=== PATIENT | female | born 1995 | race Caucasian/White ===

== ENCOUNTER 2019-03-13 14:54 | Outpatient (REF) | payer OTHER, SELFPAY ==
--- NOTE | 2019-03-13 14:30 | PAPFT_PTH ---
PATIENT: Gregory Barboza LOC: [facility] U#:[id number] AGE/SX: 24/F ROOM: RE03/13/[address]: GABBI Hendrickson : 1995 BED: DIS: 03/13/2019 SPEC #: [id number] RECD: 03/13/19 18:10 STATUS: OMAR GAMA #: [id number] DERIK: 03/13/19 14:[address]: Elaine Talavera DEPT: [facility] Cytology RECD BY: Xiomara Sandoval ENTERED: 03/13/19 18:10 SP TYPE: PAPFT CRISTI DR: Christina Tissues: 1 - CX/ENDOCX FOR PAP SMEARS Procedures: PAP THIN PREP/[facility] Screening Comments: [id number]
[2019-03-15 15:03] LABS: Chlamydia Result Negative; GC Result Negative; Specimen Description CERVIX
== END 2019-03-13 15:14 ==
LOC: LBN 14:54
PROVIDERS: Visit Provider Nurse Practitioner Family
DX: Z11.3 Encounter for screening for infections with a predominantly sexual mode of transmission (principal); Z12.4 Encounter for screening for malignant neoplasm of cervix
CPT/HCPCS: 87491; 87591; 88142

== ENCOUNTER 2020-03-15 13:46 | Outpatient (REF) | payer OTHER, SELFPAY ==
--- NOTE | 2020-03-15 13:15 | PAPFT_PTH ---
PATIENT: Gregory Barboza LOC: [facility] U#:[id number] AGE/SX: 25/F ROOM: RE03/15/[address]: GABBI Hendrickson : 1995 BED: DIS: 03/15/2020 SPEC #: [id number] RECD: 03/18/20 12:35 STATUS: OMAR REHermilo #: [id number] DERIK: 03/15/20 13:[address]: Elaine Talavera DEPT: [facility] Cytology RECD BY: Xiomara Sandoval ENTERED: 03/18/20 12:35 SP TYPE: PAPFT CRISTI DR: None Tissues: 1 - CX/ENDOCX FOR PAP SMEARS Procedures: PAP THIN PREP/[facility] Screening Comments: [id number]
[2020-03-18 15:45] LABS: Chlamydia Result Negative (Negative); GC Result Negative (Negative)
== END 2020-03-15 14:06 ==
LOC: LBN 13:46
PROVIDERS: Visit Provider Nurse Practitioner Family
DX: Z11.3 Encounter for screening for infections with a predominantly sexual mode of transmission (principal); Z12.4 Encounter for screening for malignant neoplasm of cervix
CPT/HCPCS: 87491; 87591; 88142

== ENCOUNTER 2021-03-17 09:40 | Outpatient (REF) | payer OTHER, SELFPAY ==
--- NOTE | 2021-03-17 08:30 | PAPFT_PTH ---
PATIENT: Gregory Barboza LOC: [facility] U#:[id number] AGE/SX: 26/F ROOM: RE03/17/[address]: GABBI Hendrickson : 1995 BED: DIS: 03/17/2021 SPEC #: [id number] RECD: 03/17/21 13:05 STATUS: OMAR REHermilo #: [id number] DERIK: 03/17/21 08:[address]: Elaine Talavera DEPT: [facility] Cytology RECD BY: Xiomara Sandoval ENTERED: 03/17/21 13:05 SP TYPE: PAPFT CRISTI DR: None Tissues: 1 - CX/ENDOCX FOR PAP SMEARS Procedures: PAP THIN PREP/[facility] Screening Comments: [id number]
== END 2021-03-17 09:41 | disposition home or self-care (01) ==
LOC: LBN 09:40
PROVIDERS: Visit Provider Nurse Practitioner Family
DX: Z12.4 Encounter for screening for malignant neoplasm of cervix (principal)
CPT/HCPCS: 88142